=== PATIENT | female | born 2000 | race African-American/Black ===

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

== ENCOUNTER 2022-01-13 15:25 | Emergency (ER) | payer OTHER ==
[2022-01-13 16:09] LABS: #Eosinphils 0.1 thou/uL (0.0-0.7); #Lymphocytes 1.2 thou/uL (1.20-3.40); #Monocytes 0.4 thou/uL (0.11-0.59); #Neutrophils 3.2 thou/uL (1.40-6.50); %Basophils 0.9 % (0.0-1.0); %Eosinophils 1.3 % (0.0-10.0); %Lymphocytes 24.2 % (28.0-48.0); %Monocytes 8.6 % (0.0-4.0); %Neutrophils 65.1 % (31.0-61.0); Hemoglobin 8.9 g/dL (12.0-16.0); Mean Corpuscular HGB CONC 31.2 g/dL (32.0-36.0); Mean Corpuscular Hemoglobin 22.3 pg (25.0-35.0); Mean Corpuscular Volume 71.7 fL (78.0-98.0); Mean Platelet Volume 6.4 fL (7.4-10.4); Platelet Count 649 thou/uL (130-400); RBC Distribution Width 15.3 % (11.5-14.5); Red Blood Cell (RBC) Count 3.99 mill/uL (4.00-5.20)
[2022-01-13 16:30] LABS: ALT (SGPT) Less than 7 U/L (8-55); AST (SGOT) 10 U/L (5-30); Albumin 3.5 g/dL (3.5-5.0); Alkaline Phosphatase 69 U/L (40-100); Anion Gap 15 mmol/L (10-20); BUN (Urea Nitrogen) 5 mg/dL (8.4-21.0); Bilirubin, Total 0.3 mg/dL (0.2-1.2); Calc. Creatinine Clearance 0 mL/min (70-130); Carbon Dioxide 23 mmol/L (22-29); Chloride 101 mmol/L (98-107); Estimated GFR 123; Globulin 4.6 g/dL (2.4-3.5); Glucose 89 mg/dL (70-105); Potassium 3.8 mmol/L (3.5-5.1); Protein, Total 8.1 g/dL (6.0-8.3); Sodium 135 mmol/L (136-145)
[2022-01-13] MEDS ORDERED: Ketorolac Tromethamine 30 MG/ML VIAL ONE (17:18)
[2022-01-13] MEDS ORDERED: Lidocaine 1% PF 5 ML VIAL ONE (17:18)
== END 2022-01-13 19:05 | disposition home or self-care (01) ==
LOC: ERS 15:25
DX: M06.9 Rheumatoid arthritis, unspecified (principal); M25.461 Effusion, right knee; D64.9 Anemia, unspecified
CPT/HCPCS: 20610; 36415; 80053; 85025; 85652; 86140; 96372; J1885

== ENCOUNTER 2023-05-16 17:46 | Emergency (ER) | payer OTHER, SELFPAY ==
[2023-05-16] MEDS ORDERED: Ketorolac Tromethamine 30 MG (1 mL) VIAL ONE (18:34)
[2023-05-16] MEDS ORDERED: Acetaminophen 325 MG TAB ONE (18:34)
== END 2023-05-16 20:25 | disposition home or self-care (01) ==
LOC: ERS 17:46
DX: M25.561 Pain in right knee (principal); M25.562 Pain in left knee
CPT/HCPCS: 96372; J1885